=== PATIENT | male | born 1940 | race Caucasian/White ===

== ENCOUNTER 2019-12-02 13:19 | Emergency (ER) | payer MEDICARE, SELFPAY ==
[2019-12-02 13:20] VITALS: PULSE 71; RESP 18; O2SAT 94
[2019-12-02 13:21] VITALS: BP 154/86; PULSE 76; RESP 18; TEMP 37.3; O2SAT 90; BMI 33.0
[2019-12-02 13:24] VITALS: O2SAT 90
--- NOTE | 2019-12-02 13:43 | CT_ITS ---
STUDY: CT BRAIN WITHOUT CONTRAST REASON FOR EXAM: Male, 78 years old. FALL OFF LADDER TODAY, HX OF HTN, [place], JERI, GERD RADIATION DOSAGE (If Supplied By Facility): CTDIvol = ( 44.99 ) mGy, DLP = ( 779.24 ) mGycm TECHNIQUE: Transaxial CT imaging of the brain was performed without administration of intravenous contrast material. Individualized dose optimization techniques were used for this CT. COMPARISON: No relevant priors. FINDINGS: Normal soft tissue structures. Normal calvarium. Focal hemorrhagic contusion seen in the posterior right temporoparietal lobe. There is mild cerebral atrophy with widening of the extra-axial spaces and ventricular dilatation. There are areas of decreased attenuation within the white matter tracts of the supratentorial brain, consistent with microvascular disease changes. Normal basal ganglia and thalami. Normal brainstem. 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 There are no findings of an acute ischemic infarction. Normal visualized paranasal sinuses. CT/Brain/Head without Contrast IMPRESSION: Chronic involutional changes of the brain. Focal hemorrhagic contusion seen in the posterior right temporal parietal lobe. N.B. : The above information has been verbally conveyed by Gunner Alvarez to Freddie Chin MD, on 12/02/2019 14:45:28 (ET). Electronically Signed: Gunner Alvarez, at 14:46 EDT , Service support ,
--- NOTE | 2019-12-02 13:43 | CT_ITS ---
STUDY: CT LUMBAR SPINE WITHOUT CONTRAST REASON FOR EXAM: Male, 78 years old. FALL OFF LADDER TODAY, HX OF HTN, [place], JERI, GERD RADIATION DOSAGE (If Supplied By Facility): CTDIvol = ( 34.84 ) mGy, DLP = ( 1265.11 ) mGycm TECHNIQUE: The patient was scanned in a multi detector CT scanner. High resolution transaxial imaging was performed. Images were obtained from L1 vertebrae to S1 vertebral level. Sagittal and coronal images were reconstructed. Individualized dose optimization techniques were used for this CT. COMPARISON: None FINDINGS: Normal lumbar lordosis. There is no substantial scoliosis. There is a 5.2 cm x 4.4 cm cyst in the medial inferior aspect of the left kidney. Is evidence of a nondisplaced compression fracture of the L2 vertebrae with minimal degree of the loss of height of the superior endplate. L1-2: Mild degree of disc space narrowing. Anterior spondylosis. Facet joint osteoarthritis. L2-3: Mild compression deformity of the anterior superior endplate of the L2 vertebrae in keeping with the acute compression fracture. There is evidence of a right paraspinal soft tissue swelling/hematoma at the L2 level. L3-4: Mild degree of diffuse posterior disc bulge causing mild degree of bilateral neural foraminal stenosis. L4-5: Moderate degree of disc space narrowing and degeneration. Diffuse posterior disc bulge causing mild to moderate degree of bilateral neural foraminal stenosis. Anterior spondylosis. L5-S1: Moderate degree of central disc bulge causing anterior spinal stenosis. Atherosclerotic calcification of the abdominal aorta. CT/Spine Lumbar without Contrast IMPRESSION: Acute mild depression fracture of the superior endplate of the L2 vertebra with right paraspinal soft tissue swelling/hematoma. Multilevel degenerative changes, as described above. Electronically Signed: Gunner Alvarez, at 14:39 EDT , Service support ,
--- NOTE | 2019-12-02 13:43 | CT_ITS ---
STUDY: CT CERVICAL SPINE WITHOUT CONTRAST REASON FOR EXAM: Male, 78 years old. FALL OFF LADDER TODAY, HX OF HTN, [place], JERI, GERD RADIATION DOSAGE (If Supplied By Facility): CTDIvol = ( 29.24 ) mGy, DLP = ( 648.04 ) mGycm TECHNIQUE: High resolution transaxial imaging was performed without contrast material. Sagittal and coronal images were reconstructed. Individualized dose optimization techniques were used for this CT. COMPARISON: None FINDINGS: Normal craniovertebral junction. There are degenerative changes of the anterior atlantoaxial articulation. Normal odontoid process. Normal cervical lordosis. Normal vertebral bodies and posterior osseous elements. C2-3: Normal endplates. Normal disc height and morphology. Normal central canal and intervertebral neuroforamina. C3-4: Marked degree of disc space narrowing with anterior spondylosis. Uncovertebral arthrosis. Moderate degree of bilateral neural foraminal stenosis. C4-5: Marked degree of disc space narrowing with spondylosis and uncovertebral arthrosis. No significant stenosis seen. C5-6: Mild degree of disc space narrowing. Anterior spondylosis. Uncovertebral arthrosis. Mild to moderate degree of the bilateral neural foraminal stenosis. C6-7: Marked degree of disc space narrowing. Spondylosis. Moderate degree of bilateral neural foraminal stenosis. C7-T1: Normal endplates. Normal disc height and morphology. Normal central canal and intervertebral neuroforamina. Calcification of the carotid bifurcations bilaterally as well as the aortic arch. Increased markings in the lung apices suggestive of emphysematous changes and scarring. CT/Spine Cervical without Contras IMPRESSION: Multilevel degenerative changes, as described above. Electronically Signed: Gunner Alvarez, at 14:42 EDT , Service support ,
--- NOTE | 2019-12-02 13:51 | ED.VISSUMM ---
- ER Visit Summary Date of Service: 12/02/19 Chief Complaint: Low back pain and head injury History of Present Illness: The patient is a 78 M history of CABG, cardiac stents, hypertension. Patient is on aspirin but denies other blood thinners. Patient was working with a neighbor to cut down tree branches. He was about 6 foot high on a stepladder. The branch of the tree fell hitting him in the head and knocked him to the ground. His complaint low back pain. Said he was not knocked out. Said he got up and was walking around. When squad arrived due to his injuries and mechanism they did put him on a backboard and c-collar. He denies any numbness or weakness. Physical Examination: Older male backboard and c-collar. Vital signs are stable and afebrile. He does not look septic or toxic. H EENT exam he has an abrasion on top of his head with a small hematoma about the size of a quarter. There is no laceration that needs repaired. Pupils are round reactive light. Rest of the scalp is nontender. C-spine not specifically tender. Trachea midline. He does have a c-collar in place. Lungs clear to auscultation. Chest wall nontender. No ecchymosis or bruising. No crepitance or subcu air. Heart regular rate and rhythm no murmur. Abdomen soft nontender normal bowel sounds no peritoneal signs. No signs of trauma to his abdomen. Pelvic girdle intact. Extremities moves all 4. Neurovascular intact. Nontender. No trauma and mild abrasion to his left forearm. No deformity. Normal manager reimbursement strength. Normal dorsi and plantar flexion. Able to flex extend both hips and knees. No rotation or shortening. He has mild iliac crest and lower lumbar spine tenderness. There is no bruising. Neurologically is awake. He is alert. He is answering questions. Is following commands. GCS is 15. Normal motor strength and sensation. Test Results: Test x-ray no acute abnormality portable 1 view read by myself and radiologist. Pelvis x-ray 1 view read by myself the radiologist shows chronic changes but no acute fracture. CT brain shows a right posterior cerebral contusion. CT lumbar spine shows L2 compression fracture with a paraspinal soft tissue hematoma. All test were discussed with the patient and his . Emergency Department Course and Treatment: Patient was hit in the head and fell about 6 feet he is having CAT scans done of his head, neck and lumbar spine. X-ray of his chest and pelvis. [place] for pain. Multiple repeat exams patient is doing well. He is moving all 4 extremities. I have gone over her test with both he and his were called via phone. They prefer to be transferred to [facility]. I spoke to [facility]'s emergency department and they are awaiting the transfer. He is stable and will be sent by ground. Treatment Plan: Transfer trauma center. Disposition: Transfer to [facility] Impression: Closed head injury Fell from a ladder about 6 feet Right posterior cerebral contusion L2 compression fracture with paraspinal soft tissue hematoma This note was generated with [employer] dictation software. It may contain incorrect words, spelling, and punctuation that were not noted in review of the chart prior to signing ED Disposition - Plan for ED Patient: Referrals: Ramya Jensen [Primary Care Provider] -
[2019-12-02] MEDS: HYDROcodone Bitartrate/Apap 5/325 Tablet PO (13:59)
[2019-12-02 14:00] VITALS: O2SAT 92
--- NOTE | 2019-12-02 14:22 | RAD_ITS ---
STUDY: X-RAY CHEST REASON FOR EXAM: Male, 78 years old. Fall, pain TECHNIQUE: Single AP portable view of the chest. COMPARISON: None. FINDINGS: Elevation of the right hemidiaphragm. Mild increased markings at the right lung base suggestive of right basilar atelectasis. Suspected 1.3 cm x 1.4 cm nodule in the region of the left costophrenic angle. Normal size heart. Normal mediastinum and shantell. Normal visualized pulmonary arteries. There is atherosclerotic calcification of the aortic arch with tortuosity. There are diffuse degenerative changes of the visualized thoracic spine. Normal visualized ribs, clavicles, and shoulders. There is no demonstrated abnormality of the visualized soft tissue structures of the upper abdomen. RAD/Chest 1 View IMPRESSION: Elevation of the right hemidiaphragm with mild increased markings at the right lung base suggestive of atelectasis. Findings suggestive by 1.3 cm x 1.4 cm nodule in the region of the left costophrenic angle. Electronically Signed: Gunner Alvarez, at 14:50 EDT , Service support ,
--- NOTE | 2019-12-02 14:22 | RAD_ITS ---
STUDY: X-RAY - PELVIS REASON FOR EXAM: Male, 78 years old. Fall, pain TECHNIQUE: One view of the pelvis was obtained. COMPARISON: None. FINDINGS: There is a non-specific bowel gas pattern. Penile prosthesis is seen. Degenerative changes in the lower lumbar spine. Normal bilateral iliac wings, sacroiliac joints and visualized sacrum. Normal visualized bilateral superior and inferior pubic rami. Normal pubic symphysis. Normal ischial tuberosities. Normal visualized right femoral head. Normal right acetabulum. Normal right hip joint. Normal visualized left femoral head. Normal left acetabulum. Normal left hip joint. RAD/Pelvis 1 or 2 Views IMPRESSION: Degenerative changes in the lower lumbar spine. Electronically Signed: Gunner Alvarez, at 14:48 EDT , Service support ,
[2019-12-02 16:08] VITALS: BP 143/78; O2SAT 95
[2019-12-02] MEDS: Morphine 4 MG/ML Syringe IV (16:17)
[2019-12-02 17:17] VITALS: BP 145/78; PULSE 80; RESP 16; O2SAT 92
== END 2019-12-02 17:21 | disposition short-term general hospital (02) ==
LOC: ED 13:56
PROVIDERS: Emergency Provider Emergency Medicine; PCP Family Medicine
DX: S06.310A Contusion and laceration of right cerebrum without loss of consciousness, initial encounter (principal); S32.029A Unspecified fracture of second lumbar vertebra, initial encounter for closed fracture; S50.812A Abrasion of left forearm, initial encounter; R40.2410 Glasgow coma scale score 13-15, unspecified time; W11.XXXA Fall on and from ladder, initial encounter; W22.8XXA Striking against or struck by other objects, initial encounter; Y93.9 Activity, unspecified; Y92.9 Unspecified place or not applicable; I10 Essential (primary) hypertension; I25.10 Atherosclerotic heart disease of native coronary artery without angina pectoris; Z95.1 Presence of aortocoronary bypass graft; Z79.82 Long term (current) use of aspirin
CPT/HCPCS: 70450; 71045; 72125; 72131; 72170; 96374; 99285

== ENCOUNTER 2020-10-13 09:02 | Outpatient (RCR) | payer MEDICARE, OTHER, SELFPAY | END 2020-10-13 23:59 | LOC: IMMUN 09:02 | PROVIDERS: PCP Family Medicine; Referring Provider Family Medicine; Visit Provider Family Medicine | DX: Z23 Encounter for immunization (principal) | CPT/HCPCS: 0011A; 0012A ==